=== PATIENT | male | born 1970 | race Caucasian/White ===

== ENCOUNTER 2024-08-16 06:36 | Day surgery (SDC) | payer OTHER, SELFPAY | END 2024-08-16 14:54 | disposition home or self-care (01) | LOC: GI 06:36 | PROVIDERS: ATTENDING PHYSICIAN Internal Medicine Gastroenterology | DX: K62.5 Hemorrhage of anus and rectum (principal); K64.8 Other hemorrhoids; K57.30 Diverticulosis of large intestine without perforation or abscess without bleeding; D12.2 Benign neoplasm of ascending colon | CPT/HCPCS: 45380; 88305 ==